=== PATIENT | male | born 1960 | race Caucasian/White ===

== ENCOUNTER → 2016-07-12 | Outpatient (CLI) | payer BC | LOC: BRMIMAGING 14:10 | PROVIDERS: ATTEND Family Medicine | DX: Z13.820 Encounter for screening for osteoporosis (principal); E29.1 Testicular hypofunction; S22.000A Wedge compression fracture of unspecified thoracic vertebra, initial encounter for closed fracture ==

== ENCOUNTER → 2016-11-20 | Outpatient (CLI) | payer BC | LOC: FIMAGING 08:49 | PROVIDERS: ATTEND Physician Assistant | DX: M79.622 Pain in left upper arm (principal) ==

== ENCOUNTER → 2018-02-05 | Outpatient (CLI) | payer BC | LOC: FIMAGING 18:25 | PROVIDERS: ATTEND Family Medicine | DX: R11.0 Nausea (principal); R42 Dizziness and giddiness ==